=== PATIENT | female | born 1960 | race Caucasian/White ===

== ENCOUNTER 2018-07-04 12:46 | Emergency (ER) | payer OTHER, SELFPAY ==
[2018-07-04 12:46] VITALS: BP 181/105; PULSE 78; RESP 21; TEMP 36.4; O2SAT 100
[2018-07-04 12:53] VITALS: BP 181/105; PULSE 78; RESP 21; O2SAT 100
--- NOTE | 2018-07-04 13:00 | ED.NEUROSD ---
HPI - Neuro Symptoms/Deficit General Chief Complaint: Neuro Symptoms/Deficit Stated Complaint: HEADACHE,LOSS OF VISION Time Seen by Provider: 07/04/18 13:00 Source: patient Mode of arrival: ambulatory Limitations: no limitations History of Present Illness HPI Narrative: The patient developed a headache today, in the left periorbital region. She has had slight blurred vision with the left eye throughout the day also. With this she has no facial droop, no confusion or voice changes. She has no extremity weakness. She is ambulatory. She is not confused. She tells me she has had sinus congestion for about 1 month. She has previously been prescribed Flonase. She has not been using this medication. She does smoke, although rarely. She is concerned about sinusitis. She has a prior history of ocular migraines. She has recently been experiencing left-sided scotoma on a regular basis. Although she complains of blurred vision today, there has been no visual field cut. She has no history of stroke or TIA. Related Data Home Medications Medication Instructions Recorded Confirmed levothyroxine [Synthroid] 300 mcg PO SUMOWETHFRSA 07/04/18 07/04/18 Allergies Allergy/AdvReac Type Severity Reaction Status Date / Time metoclopramide [From Reglan] Allergy Severe Seizure Verified 07/04/18 13:33 Review of Systems Review of Systems All systems reviewed & are unremarkable except as noted in HPI and below Constitutional Denies chills, Denies fever(s), Reports headache(s) and Denies lethargy Eyes Denies blind spots, Denies diplopia and Reports other (Left blurred vision, no visual field cut.) ENT Ears, Nose, Mouth, and Throat: Denies change in voice, Denies vertigo, Denies dizziness, Reports headache(s), Denies neck pain and Denies sore throat Cardiovascular Denies chest pain, Denies irregular heart rhythm, Denies lightheadedness, Denies palpitations and Denies dyspnea Respiratory Denies cough and Denies dyspnea Gastrointestinal Gastrointestinal: Denies abdominal pain, Denies change in bowel habits, Denies diarrhea, Denies nausea and Denies vomiting Musculoskeletal Denies neck pain and Denies numbness Integumentary/Breasts Denies erythema, Denies rash and Denies wounds Neurologic Denies confusion, Denies vertigo, Denies dizziness, Reports headache(s), Denies focal weakness, Denies memory loss and Denies numbness Psychiatric Denies confusion and Denies memory loss Endocrine Denies palpitations Hematologic/Lymphatic Denies easy bruising [facility] Medical History Hypothyroidism (Acute) Social History Smoking Status: Current some day smoker substance use type: does not use Exam Initial Vital Signs Initial Vital Signs: Vital Signs Temperature 97.6 F 07/04/18 12:46 Pulse Rate 78 07/04/18 12:46 Respiratory Rate 21 07/04/18 12:46 Blood Pressure 181/105 H 07/04/18 12:46 Pulse Oximetry 100 07/04/18 12:46 Const General: cooperative and well developed Nutritional Appearance: well nourished Orientation: alert, awake and oriented x3 HENMT Head: normocephalic and atraumatic Ears: external ears normal and TM's normal bilaterally Nose: external nose normal and No nasal discharge Face and sinus: sinuses nontender, face symmetric, no sinus tenderness and No dry mucous membranes Mouth: oral mucosae normal and moist mucous membranes Teeth and gingiva: dentition normal Throat: tonsils normal and uvula midline Eyes General: appearance normal, both eyes and all related structures Visual Christian: normal visual christian by confrontation Eyelids: eyelids normal Conjunctivae: conjunctivae normal Sclera: sclerae normal Pupils: PERRL EOM: EOM intact bilaterally Direct ophthalmoscopy: normal light reflex Other: No visual field cuts. Neck Neck: normal visual inspection, trachea midline, No lymphadenopathy, No midline deformity and No JVD Carotids: no bruits Resp Effort & Inspection: normal respiratory effort, able to speak in complete sentences, no respiratory distress and no use of accessory muscles Auscultation: clear to auscultation bilaterally, no rales, no rhonchi and no wheezes Cardio Rate: regular rate Rhythm: regular rhythm Heart Sounds: no click, no gallops, no murmurs and no rubs Pulses: normal peripheral pulses GI Inspection: non-distended Palpation: soft, no hepatosplenomegaly, No guarding, No pulsatile mass and No tender Auscultation: normal bowel sounds Back/Spine/Pelvis Back: No CVA tenderness Cervical Spine: cervical ROM normal Thoracic/Lumbar Spine: thoracic and lumbar spine normal to inspection Skin General: no rashes or lesions noted Neuro General: alert, oriented x3, gait normal and no focal motor deficits Speech: speech normal Gait: normal gait Motor: muscle tone normal throughout Sensory Exam: no sensory deficits noted Extrem General: full ROM, no pedal edema and no calf tenderness Psych Appearance: well kempt Mental Status: mental status grossly normal Attitude: cooperative Thought Content: normal and suicidality Judgment: judgment good Scores NIH Stroke Scale Level of Conciousness: Alert, keenly responsive Ask month/age: Answers both questions correctly. Open/close eyes, close hand: Performs both tasks correctly Best gaze horizontal: Normal Visual christian: No visual loss Facial palsy: Normal symetrical movement Left arm drift: No drift for full 10 sec Right arm drift: No drift for full 10 sec Left leg drift: No drift for full 10 sec Right leg drift: No drift for full 10 sec Limb ataxia: Absent Sensory on face/arms/legs: Normal, no sensory loss Best language: No aphasia, normal Dysarthria: Normal Extinction or inattention: No abnormality Total NIH Stroke scale score: 0 Course Orders Ordered: ED Orders 07/04/18 13:01 CT head/brain wo con Stat EKG-12 Lead Stat Discontinued Medications Ketorolac Tromethamine (Toradol) 30 mg IV NOW ONE Stop: 07/04/18 13:55 Last Admin: 07/04/18 14:04 Dose: 30 mg Vital Signs - 8 hr 07/04/18 12:46 07/04/18 12:53 07/04/18 14:02 Temperature 97.6 F Pulse Rate 78 78 77 Respiratory Rate 21 21 17 Blood Pressure 181/105 H Blood Pressure [Right Arm] 181/105 H 162/102 H Pulse Oximetry 100 100 98 [facility] - Neuro Symptoms/Deficit Lab Data Point of Care Testing Glucose POC [address] scan - head: Radiologist's impression: Source of visual change is not identified. 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 Followup by MR scanning may be warranted at this time depending on clinical status to further assess etiology of reported left-sided vision changes. ECG Data Attestation: I personally reviewed and interpreted this ECG as follows: (Normal sinus rhythm rate 74 bpm. Possible LAD. No acute ST or T-wave changes. No ectopy. No other interval changes.) [facility] Narrative Medical decision making narrative: Her head CT revealed a calcium buildup in the 4th ventricle. Per radiology read this is worth further exploration with an MRI. She has a history of ocular migraines, she has responded quite well to Toradol and will be discharged. I have referred her back to her PCM for brain MRI regarding the calcification in the 4th ventricle. Discharge Plan Departure Patient Disposition: Home Clinical Impression: Ocular migraine Instructions: Migraine -- Adult Activity Restrictions/Additional Instructions: Advil 3 tablets every 6 hr as needed for headaches. Flonase 1 spray per nostril daily. Dear head CT showed a calcification in the 4th ventricle. This is probably of no concern but could be related to the headaches. This is not a cancer follow up with her doctor, an MRI of the brain may be helpful. Talk to your doctor about daily migraine management. Return here as needed. Prescriptions: No Action levothyroxine [Synthroid] 200 mcg tablet 300 mcg PO SUMOWE RF: 0
--- NOTE | 2018-07-04 13:01 | DI.CT.S_ITS ---
PROCEDURE: CT HEAD/BRAIN WO CON INDICATIONS: Headache. Left blurred vision. TECHNIQUE: Noncontrast 4.5 mm thick angled axial sections acquired from the foramen magnum to the vertex, with coronal and sagittal reformats. For radiation dose reduction, the following was used: automated exposure control, adjustment of mA and/or kV according to patient size. COMPARISON: None. FINDINGS: Image quality: Excellent. CSF spaces: Basal cisterns are patent. No extra-axial fluid collections. Ventricles are normal in size and shape. There is a rounded calcification in the ependymal margin of the fourth ventricle, nonobstructive, measuring up to 5 mm. Brain: No midline shift. No intracranial masses or hemorrhage. Fraire-white matter interface is normal. Skull and face: Calvarium and visualized facial bones are intact, without suspicious lesions. Sinuses: Visualized sinuses and mastoids are clear. IMPRESSION: Source of visual change is not identified. 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 Followup by MR scanning may be warranted at this time depending on clinical status to further assess etiology of reported left-sided vision changes. Dictated by: Grayson Patel M.D. on 07/04/2018 at 13:23 Approved by: Grayson Patel M.D. on 07/04/2018 at 13:25
--- NOTE | 2018-07-04 13:10 | PC.NURSE ---
code stroke called upon pt arrival [id number]
[2018-07-04 14:02] VITALS: BP 162/102; PULSE 77; RESP 17; O2SAT 98
[2018-07-04] MEDS: KETOROLAC 60 MG/2 ML VIAL 30 MG IV (14:04)
[2018-07-04 15:30] VITALS: BP 159/95; PULSE 67; RESP 14; O2SAT 97
== END 2018-07-04 15:30 | disposition home or self-care (01) ==
PROVIDERS: Emergency Provider Emergency Medicine
DX: G43.109 Migraine with aura, not intractable, without status migrainosus (principal)
CPT/HCPCS: 70450; 82962; 93005; 96374; 99283; 99285; 99291; J1885

== ENCOUNTER → 2018-07-25 09:12 | Outpatient (CLI) | payer OTHER, SELFPAY ==
--- NOTE | 2018-07-25 | DI.MRI.S_ITS ---
PROCEDURE: MR HEAD/BRAIN WO/W CON INDICATIONS: ABNORMAL FINDING OF DIAGNOSTIC IMAGING CT TECHNIQUE: Noncontrast axial T1 spin echo, axial T2 fast spin echo, sagittal and axial FLAIR, coronal T2 fast spin echo, axial gradient echo, axial diffusion and ADC through the brain. After the administration of contrast, axial and coronal 3D VIBE or T1 spin echo with fat saturation through the brain. COMPARISON: [facility], CT, CT HEAD/BRAIN WO CON, 07/04/2018, 13:08. FINDINGS: Image quality: Excellent. CSF Spaces: Basal cisterns are patent. No extra-axial fluid collections. Ventricles are normal in size and shape. Brain: In this patient with this given history, scrutiny is given to the left ventricle. Within the 4th ventricle, there is a nonenhancing lesion seen that measures 4 mm. No findings of obstruction of CSF can be seen. No midline shift. No intracranial bleeds. No abnormal intracranial enhancement. The brainstem appears normal. Diffusion-weighted images demonstrate no acute ischemic insults. No chronic ischemic insults. Normal intravascular flow voids are present. Skull and face: Calvarial marrow is normal in signal. Orbits appear normal. Sinuses: Sinuses and mastoids appear clear. IMPRESSION: 4 mm nonenhancing focus seen within the 4th ventricle. Given the appearance, this is felt most likely to be related to a benign lesion. Attention should be given to this focus on any future followup imaging. Dictated by: Diaz Queen M.D. on 07/25/2018 at 10:59 Approved by: Diaz Queen M.D. on 07/25/2018 at 11:01
== END ==
PROVIDERS: PCP Physician Assistant; Visit Provider Physician Assistant
DX: R93.89 Abnormal findings on diagnostic imaging of other specified body structures (principal); G93.9 Disorder of brain, unspecified
CPT/HCPCS: 70553; A9579